=== PATIENT | female | born 1945 | race African-American/Black ===

== ENCOUNTER 2018-03-05 12:04 | Emergency (ER) | payer OTHER, BC ==
[2018-03-05 12:16] VITALS: Ht 167.6 cm
[2018-03-05 12:49] LABS: BASOPHIL % 0.4 % (0-2); PLATELET COUNT 185 x10^3mcL (130-400); RED CELL DISTRIBUTION WIDTH 14.5 % (11.5-14.5)
[2018-03-05 13:04] LABS: ALKALINE PHOSPHATASE 88 U/L (46-116); ALT/SGPT 25 U/L (14-59); AMYLASE 97 U/L (25-115); AST/SGOT 19 U/L (15-37); BILIRUBIN TOTAL 0.93 mg/dL (0.20-1.00); CALCIUM 9.7 mg/dL (8.5-10.1); CARBON DIOXIDE 30.7 mmol/L (21-32); CHLORIDE SERUM 102 mmol/L (98-107); CREATININE SERUM 0.9 mg/dL (0.6-1.0); GLUCOSE SERUM 97 mg/dL (74-106); LIPASE 93 IU/L (73-393); POTASSIUM SERUM 3.7 mmol/L (3.5-5.1); SODIUM SERUM 138 mmol/L (136-145)
[2018-03-05 13:08] LABS: TOTAL PROTEIN, SERUM 8.6 g/dL (6.4-8.2)
[2018-03-05 15:31] VITALS: BP 136/86
== END 2018-03-05 15:33 | disposition home or self-care (01) ==
LOC: ED 12:04
PROVIDERS: Specialist
DX: K57.92 Diverticulitis of intestine, part unspecified, without perforation or abscess without bleeding (principal); I10 Essential (primary) hypertension
CPT/HCPCS: J1885; J3490; J7030